=== PATIENT | female | born 2000 | race Caucasian/White ===

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

== ENCOUNTER 2022-08-08 07:47 | Emergency (ER) | payer MEDICAID, SELFPAY ==
[2022-08-08 08:00] VITALS: BMI 22.8
[2022-08-08 08:05] VITALS: BP 132/88; PULSE 105; RESP 18; TEMP 36.7; O2SAT 97
--- NOTE | 2022-08-08 08:30 | XRR_ITS ---
PROCEDURE INFORMATION: Exam: XR Chest Exam date and time: 08/08/2022 9:00 AM Age: 21 years old Clinical indication: Pain; Shortness of breath; Angina pectoris; Additional info: Short of breath, chest pain TECHNIQUE: Imaging protocol: Radiologic exam of the chest. Views: 1 view. COMPARISON: CR (CHEST, ) 09/25/2021 8:53 PM FINDINGS: Lungs: No focal airspace disease. Pleural spaces: Unremarkable. No pleural effusion. No pneumothorax. Heart/Mediastinum: Cardiomediastinal silhouette is within normal limits. Bones/joints: Unremarkable. XR/XR chest 1V portable [id number] IMPRESSION: No acute cardiopulmonary abnormality.
--- NOTE | 2022-08-08 08:44 | ECG_ITS ---
[facility] Test Date: 2022-08-08 Pat Name: Tylor Roland Department: Room: Gender: Female Senior Financial Accountant: : 2000 Requested By: Aubrie May Order Number: [id number] Reed MD: Cecily Guzman M.D. Measurements Intervals [place] Rate: 98 P: 30 ID: [id number] QRS: 59 QRSD: 68 T: 41 QT: 332 QTc: 425 Interpretive Statements SINUS RHYTHM No previous ECG available for comparison Electronically Signed On 08-08-2022 22:04:00 CDT by Cecily Guzman M.D. [id number]
[2022-08-08] MEDS: ondansetron 2 mg/ML SDV 2 mL 4 MG IVP (08:45)
[2022-08-08 08:48] VITALS: RESP 16; O2SAT 97
[2022-08-08] MEDS: morphine 4 mg/mL SDV 1 mL IVP (08:48)
[2022-08-08 08:50] VITALS: PULSE 98; RESP 16; O2SAT 98
[2022-08-08 09:10] LABS: Basophils % 0.6 %; Eosinophils # 0.2 10^3/uL (0.0-0.8); Eosinophils % 2.2 %; Hematocrit 44.6 % (37.0-47.0); Hemoglobin 15.2 g/dL (11.5-15.3); Lymphocytes # 1.9 10^3/uL (1.5-6.5); Lymphocytes % 27.3 %; Mean Corpuscular HGB Conc 34.1 g/dL (30.0-36.0); Mean Corpuscular Hemoglobin 30.1 pg (28.0-34.0); Mean Corpuscular Volume 88.3 fl (81-99); Mean Platelet Volume 8.9 fL (7.4-10.4); Monocytes # 0.6 10^3/uL (0.2-0.9); Monocytes % 9.2 %; Neutrophils # 4.13 10^3/uL (1.8-8.0); Neutrophils % 60.3 %; Nucleated Red Blood Cells % 0 %; Platelet Count 386 10^3/cmm (130-400); Red Blood Count 5.05 10^6/uL (4.1-5.3); Red Cell Distribution Width 11.8 % (12.1-15.1); White Blood Count 6.9 10^3/uL (4.5-13.0)
[2022-08-08 09:28] LABS: HCG, Serum Qual Negative (Negative)
[2022-08-08 09:29] LABS: D Dimer 0.63 ug/mIFEU (0-0.59)
[2022-08-08 09:31] VITALS: BP 120/80; PULSE 96; RESP 14; O2SAT 96
[2022-08-08 09:36] LABS: Alanine Aminotransferase 23 U/L (0-33); Albumin Level 4.8 g/dL (3.5-5.2); Alkaline Phosphatase 98 U/L (35-105); Anion Gap 16.5 (5-19); Aspartate Amino Transferase 19 U/L (0-32); Blood Urea Nitrogen 10 mg/dL (6-20); Calcium 10.3 mg/dL (8.5-10.5); Carbon Dioxide 26 mmol/L (22-29); Chloride 104 mmol/L (98-107); Globulin 3.4 g/dL (1.3-4.6); Glomerular Filtration Rate 128.8 mL/min (90-130); Glucose 94 mg/dL (65-115); Osmolality Calculated 293 mOsm/kg (285-295); Potassium 4.5 mmol/L (3.5-5.1); Sodium 142 mmol/L (136-145); Total Bilirubin 0.8 mg/dL (0.15-1.2); Total Protein 8.2 g/dL (6.6-8.7)
--- NOTE | 2022-08-08 09:50 | CTR_ITS ---
PROCEDURE INFORMATION: Exam: CTA Chest With Contrast Exam date and time: 08/08/2022 9:59 AM Age: 21 years old Clinical indication: Pain; Shortness of breath; Chest pressure; Additional info: [place], JAREN TECHNIQUE: Imaging protocol: Computed tomographic angiography of the chest with contrast. 3D rendering (Not supervised by radiologist): MIP and/or 3D reconstructed images were created by the technologist. Radiation optimization: All CT scans at this facility use at least one of these dose optimization techniques: automated exposure control; mA and/or kV adjustment per patient size (includes targeted exams where dose is matched to clinical indication); or iterative reconstruction. Contrast material: OMNI 350; Contrast volume: 61 ml; Contrast route: INTRAVENOUS (IV); COMPARISON: CR (CHEST, ) 08/08/2022 9:00 AM RADIATION DOSE METRICS: Total DLP (mGy-cm): 160.95 FINDINGS: Pulmonary arteries: Normal. No pulmonary emboli. Aorta: Unremarkable. No aortic aneurysm. No aortic dissection. Lungs: Unremarkable. No consolidation. No masses. Pleural spaces: Unremarkable. No pneumothorax. No pleural effusion. Heart: Unremarkable. No cardiomegaly. No pericardial effusion. Lymph nodes: Unremarkable. No enlarged lymph nodes. Bones/joints: Unremarkable. No acute fracture. Soft tissues: Unremarkable. CT/CT angio chest PE protcl [id number] IMPRESSION: No acute findings.
[2022-08-08] MEDS: iohexol 350 mg/mL 100 mL Btl IV (10:04)
[2022-08-08 10:21] VITALS: BP 125/83; PULSE 91; RESP 17; O2SAT 99
--- NOTE | 2022-08-08 10:21 | ED_ITS ---
HPI - SOB/Dyspnea General: Chief Complaint: Shortness of Breath/Dyspnea Stated Complaint: SOB, Chest pressure Time Seen by Provider: 08/08/22 08:21 History of Present Illness: HPI Narrative: This patient is a 21-year-old presenting to the ER with chest pain and shortness of breath that began at about 3:00 this morning. She denies any prior history of chest pain or shortness of breath. She denies any recent history or cough. No fevers. No sore throat. No recent injury. She says that nothing makes the pain better or worse. When specifically asked she does say that taking a deep breath makes the pain worse. The pain is also worse with laying back or sitting forward. She is reclined about 45 degrees and says that is comfortable. She denies other medical history. She seems anxious and is hyperventilating slightly on my evaluation. She is breathing with pursed lips. She is however, able to answer questions and speak in full sentences without difficulty. Associated symptoms: Reports chest pain; Deny abdominal pain, fever(s), nausea, syncope or vomiting Review of Systems Const: Denies: fever(s), chills, fatigue or malaise Eyes: Denies: change in vision ENMT: Denies: odynophagia Card: Reports: chest pain; Denies: swelling of feet/ankles or syncope Resp: Reports: dyspnea and pain on inspiration; Denies: productive cough or non-productive cough GI: Denies: abdominal pain, nausea or vomiting : Denies: flank pain or difficulty voiding Musc: Denies: neck pain or back pain Skin/Breast: Denies: rash Neuro: Denies: headache(s), numbness in extremities or weakness in extremities Agapito/Lymph: Denies: easy bruising or easy bleeding PFS ED PFSH: Social History Smoking and tobacco status: never smoked Female Reproductive History: Date of last menstrual period: 08/02/22 Physical Exam Const: COMMON NORMALS: patient oriented x3, no limitations, healthy appearing and alert; apparent distress (Anxious) GENERAL APPEARANCE: cooperative and comfortable HENMT: HEAD & SCALP: normal to inspection FACE & SINUS: normal facial exam Eye: GENERAL EYE: appearance normal, both eyes and all related structures Neck/C-Spine: COMMON NORMALS: supple, no meningeal signs and no JVD Chest: COMMONS NORMALS: normal inspection of the chest Resp: COMMON NORMALS: normal respiratory effort, No use of accessory muscles and clear to auscultation bilaterally AUSCULTATION: clear to auscultation bilaterally Cardio: COMMON NORMALS: no JVD, regular rate, regular rhythm and No murmurs present (Cardio) RATE: regular rate RHYTHM: regular rhythm GI: COMMON NORMALS: Normal to inspection, nondistended, normoactive bowel sounds present, Soft to palpation and non-tender INSPECTION: Yes normal to inspection AUSCULTATION: Yes normoactive bowel sounds PALPATION: Yes Soft to palpation Back/Pelvis: COMMON NORMALS: thoracic and lumbar spine normal to inspection Extremity: COMMON NORMALS: normal to inspection Neuro: COMMON NORMALS: patient oriented x3, moves all extremities, no focal motor deficits and no sensory deficits noted SENSORIUM/ORIENTATION: Yes alert MENINGEAL SIGNS: Yes no meningeal signs Psych: COMMON NORMALS: mental status grossly normal, cooperative and normal affect Skin: COMMON NORMALS: no rashes or lesions noted and turgor normal GENERAL SKIN EXAM: no rashes or lesions noted and turgor normal Course Vital Signs: Vital signs: Vital Signs Temperature 98.0 F 08/08/22 08:05 Pulse Rate 97 08/08/22 10:55 Respiratory Rate 16 08/08/22 10:55 Blood Pressure 137/89 08/08/22 10:55 Pulse Oximetry 98 08/08/22 10:55 Oxygen Delivery Me thod 08/08/22 10:21 MDM - SOB/Dyspnea Medical Decision Making Patient with chest pain or shortness of breath. She appears anxious on exam. Her chest pain is pleuritic in nature. It is not relieved by sitting forward. Lungs are clear. She does not have risk factors for PE but given her clear lungs and pleuritic pain a D-dimer was ordered. This was positive and thus a CT angio was done. This was also negative. She could have some mild pericarditis although that would typically be improved by leaning forward not worsened. Given her otherwise normal work-up, normal vital signs, normal oxygen saturation, I think she is safe to be discharged for outpatient follow-up. Patient had relief of symptoms with morphine. Lab Data : 08/08/22 08:47 08/08/22 08:47 Labs/Radiology: Radiology Impressions Chest X-Ray 08/08/22 08:30 IMPRESSION: No acute cardiopulmonary abnormality. Chest CTA 08/08/22 09:50 IMPRESSION: No acute findings. Laboratory Results WBC 6.9 10^3/uL (4.5-13.0) 08/08/22 08:47 RBC 5.05 10^6/uL (4.1-5.3) 08/08/22 08:47 Hgb 15.2 g/dL (11.5-15.3) 08/08/22 08:47 Hct 44.6 % (37.0-47.0) 08/08/22 08:47 MCV 88.3 fl (81-99) 08/08/22 08:47 MCH 30.1 pg (28.0-34.0) 08/08/22 08:47 MCHC 34.1 g/dL (30.0-36.0) 08/08/22 08:47 RDW 11.8 % (12.1-15.1) L 08/08/22 08:47 Plt Count 386 10^3/cmm (130-400) 08/08/22 08:47 MPV 8.9 fL (7.4-10.4) 08/08/22 08:47 Neut % (Auto) 60.3 % 08/08/22 08:47 Lymph % (Auto) 27.3 % 08/08/22 08:47 [place] % (Auto) 9.2 % 08/08/22 08:47 Eos % (Auto) 2.2 % 08/08/22 08:47 Baso % (Auto) 0.6 % 08/08/22 08:47 Neut # (Auto) 4.13 10^3/uL (1.8-8.0) 08/08/22 08:47 Lymph # (Auto) 1.9 10^3/uL (1.5-6.5) 08/08/22 08:47 [place] # (Auto) 0.6 10^3/uL (0.2-0.9) 08/08/22 08:47 Eos # (Auto) 0.2 10^3/uL (0.0-0.8) 08/08/22 08:47 Baso # (Auto) 0.0 10^3/uL (0.0-0.1) 08/08/22 08:47 Nucleated RBC % (auto) 0 % 08/08/22 08:47 Nucleated RBCs # 0.0 /100WBC 08/08/22 08:47 D-Dimer 0.63 ug/mIFEU (0-0.59) H 08/08/22 08:47 Sodium 142 mmol/L (136-145) 08/08/22 08:47 Potassium 4.5 mmol/L (3.5-5.1) 08/08/22 08:47 Chloride 104 mmol/L (98-107) 08/08/22 08:47 Carbon Dioxide 26 mmol/L (22-29) 08/08/22 08:47 Anion Gap 16.5 (5-19) 08/08/22 08:47 BUN 10 mg/dL (6-20) 08/08/22 08:47 Creatinine 0.6 mg/dL (0.5-0.9) 08/08/22 08:47 GFR Calculation 128.8 mL/min (90-130) 08/08/22 08:47 Glucose 94 mg/dL (65-115) 08/08/22 08:47 Calculated Osmolality 293 mOsm/kg (285-295) 08/08/22 08:47 Calcium 10.3 mg/dL (8.5-10.5) 08/08/22 08:47 Total Bilirubin 0.8 mg/dL (0.15-1.2) 08/08/22 08:47 AST 19 U/L (0-32) 08/08/22 08:47 ALT 23 U/L (0-33) 08/08/22 08:47 Alkaline Phosphatase 98 U/L (35-105) 08/08/22 08:47 Total Protein 8.2 g/dL (6.6-8.7) 08/08/22 08:47 Albumin 4.8 g/dL (3.5-5.2) 08/08/22 08:47 Globulin 3.4 g/dL (1.3-4.6) 08/08/22 08:47 HCG, Qual Negative (Negative) 08/08/22 08:47 Imaging Data CTA Chest: My impression: No PE Radiologist's impression: No PE EKG Data EKG 1: Interpretation: EKG at 8:44 AM. Sinus rhythm, normal intervals, rate 98. Normal axis. Normal ST segments. Normal QRS complex. Discharge Plan Discharge Patient Disposition: Home Clinical Impression: Shortness of breath, Chest pain, pleuritic Condition: Stable Prescriptions: New naproxen 500 mg tablet 500 mg PO BID PRN (Reason: pain) Qty: 14 0RF omeprazole 40 mg capsule,delayed release(DR/EC) 40 mg PO DAILY Qty: 7 0RF Discontinued hydrocodone-acetaminophen 5-325 mg tablet 1 tab PO Q6H PRN (Reason: pain) Qty: 14 0RF Discharge Orders: Discharge ED (Routine); Ordered 08/08/22 Ordered By: Aubrie Ortiz Discharge Diet: Usual diet Discharge Activity: Resume usual activity Patient Instructions: Opioid Safety, Pain Management Activity Restrictions/Additional Instructions: Take the medications as prescribed for the next week. Return to the ER if new or worse symptoms occur. Follow-up with your primary care provider for further evaluation of your symptoms. Your testing today did not reveal any significant abnormal findings. Coding Level of Care Code ED Inter Com Installer for Froylan Fwd Exam Comprehensive
[2022-08-08 10:55] VITALS: BP 137/89; PULSE 97; RESP 16; O2SAT 98
== END 2022-08-08 10:56 | disposition home or self-care (01) ==
PROVIDERS: Emergency Provider Emergency Medicine
DX: R06.02 Shortness of breath (principal); R07.81 Pleurodynia
CPT/HCPCS: 71045; 71275; 80053; 84703; 85025; 85378; 93005; 96374; 96375; 99285; J2270; J2405; Q9967

== ENCOUNTER 2023-02-15 14:04 | Emergency (ER) | payer MEDICAID, SELFPAY ==
[2023-02-15 14:11] VITALS: PULSE 104; RESP 16; TEMP 36.8; O2SAT 99; BMI 21.8
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
== END 2023-02-15 15:50 | disposition home or self-care (01) ==
PROVIDERS: Emergency Provider Physician Assistant; PCP Nurse Practitioner Family
DX: S83.92XA Sprain of unspecified site of left knee, initial encounter (principal); S97.82XA Crushing injury of left foot, initial encounter; V09.9XXA Pedestrian injured in unspecified transport accident, initial encounter
CPT/HCPCS: 73562; 73590; 73610; 73630; 99284

== ENCOUNTER 2023-08-12 13:00 | Emergency (ER) | payer MEDICAID, SELFPAY ==
[2023-08-12] VITALS (20 sets, daily range): BP systolic 110–127; BP diastolic 66–86; PULSE 75–84; RESP 18; TEMP 36.7; O2SAT 98–100; BMI 25.6
--- NOTE | 2023-08-12 13:47 | W.ED.FEMALGU ---
Documented by User: Salome Mccoy PA-C 08/12/23 15:37 HPI - Female Genitourinary General: Chief complaint: Urogenital-Female Stated complaint: cant pee Time Seen by Provider: 08/12/23 13:30 Source: patient Mode of arrival: ambulatory Limitations: no limitations History of Present Illness: 22-year-old female presents to the ER today with pain with urination. Patient reports this is a recurrent issue for her. 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 Patient reports since then she has had frequent UTIs. Her last UTI was about 30 days ago and she was treated and improved from that. Patient reports she does have intercourse and the UTIs have worsened since she started doing that. She does urinate every time after intercourse. She is not on any type of prophylactic antibiotic for postcoital infections. Patient denies any fever or chills. Denies any nausea or vomiting. Patient reports urgency and frequency with lots of hesitancy and trouble urinating. [facility] ED PFSH: Social History Smoking and tobacco/nicotine status: never used tobacco/nicotine Physical Exam Const: COMMON NORMALS: no acute distress, average body habitus, no limitations, healthy appearing, alert and well nourished Resp: COMMON NORMALS: normal respiratory effort EFFORT & INSPECTION: Yes able to speak in complete sentences Cardio: COMMON NORMALS: regular rate and regular rhythm RATE: regular rate RHYTHM: regular rhythm GI: COMMON NORMALS: Normal to inspection, nondistended, normoactive bowel sounds present, Soft to palpation and non-tender PALPATION: Yes Soft to palpation : COMMON NORMALS: Yes no CVA tenderness BLADDER/KIDNEY EXAM: Yes no CVA tenderness and Yes other (no suprapubic tenderness, no distension) Back/Pelvis: COMMON NORMALS: no CVA tenderness Extremity: COMMON NORMALS: normal to inspection, full ROM and no pedal edema Neuro: SENSORIUM/ORIENTATION: Yes alert Psych: COMMON NORMALS: mental status grossly normal, Normal thought process present and cooperative THOUGHT PROCESS: Normal thought process present Skin: COMMON NORMALS: no rashes or lesions noted and no wounds GENERAL SKIN EXAM: no rashes or lesions noted Course ED course: Patient presents to the ER with a history of recurrent UTIs with urinary symptoms. Patient has hesitancy and dysuria today. No fevers. No nausea or vomiting. We will get a UA at this time and treat based on results. Vital Signs: Vital signs: Vital Signs Temperature 98.0 F 08/12/23 13:08 Pulse Rate 75 08/12/23 15:44 Respiratory Rate 18 08/12/23 13:08 Blood Pressure 110/66 08/12/23 15:44 Pulse Oximetry 98 08/12/23 15:44 Oxygen Delivery Me thod Room Air 08/12/23 13:08 MDM - Female Medical Decision Making UA shows blood and leukocytes. Patient in no acute distress in the ER. We will go ahead and treat with Macrobid at this time. Recommended patient push fluids. Always urinate right after intercourse. Discussed with PCP possibly taking prophylactic antibiotics with intercourse given frequent infections. Follow-up with PCP in 7 to 10 days. Return to the ER with new or worsening symptoms. Patient verbalized understanding and was in agreement with the treatment plan. Lab Data Laboratory Results Urine Color Yellow (Yellow) 08/12/23 15:03 Urine Appearance Cloudy (CLEAR) A 08/12/23 15:03 Urine pH 5 (5-7) 08/12/23 15:03 Ur Specific [place] 1.030 (1.005-1.030) 08/12/23 15:03 Urine Protein Neg (Negative) 08/12/23 15:03 Urine Glucose (UA) Norm (Normal) 08/12/23 15:03 Urine Ketones 1+ (Negative) H 08/12/23 15:03 Urine Blood 3+ (Negative) H 08/12/23 15:03 Urine Nitrate Negative (Negative) 08/12/23 15:03 Urine Bilirubin 1+ (Negative) H 08/12/23 15:03 Urine Urobilinogen Norm mg/dL (Negative) 08/12/23 15:03 Ur Leukocyte Esterase Trace (Negative) H 08/12/23 15:03 Urine RBC 0-4 /hpf (0-2) H 08/12/23 15:03 Urine WBC 5-10 /hpf (0-5) H 08/12/23 15:03 Ur Squamous Epith Cells 25-40 /hpf (0-5) H 08/12/23 15:03 Amorphous Sediment Not Reportable 08/12/23 15:03 Urine Bacteria 1+ /hpf (NONE) H 08/12/23 15:03 Urine Mucus 2+ /hpf 08/12/23 15:03 No radiology studies performed this visit Critical Care Time Critical Care Time: Critical Care Time: No Discharge Plan Discharge Patient Disposition: Home Clinical Impression: Urinary tract infection Condition: Stable Prescriptions: New Macrobid 100 mg capsule 100 mg PO BID 5 Days Qty: 10 0RF Rx Instructions: must administer with a meal/food No Action Celexa 10 mg Tablet 10 mg PO QAM Xulane 150-35 mcg/24 hr Patch Weekly 1 patch TRANSDERMAL Q7D Rx Instructions: apply once weekly for 3 weeks of a 4-week cycle Focalin XR 15 mg Capsule,Er Biphasic 50-50 15 mg PO QAM Discharge Orders: Discharge ED (Routine); Ordered 08/12/23 Ordered By: Salome Mccoy Referrals: Janiya Mulligan NP [Primary Care Provider] - Discharge Diet: Usual diet Discharge Activity: Resume usual activity Patient Instructions: Opioid Safety, Pain Management Activity Restrictions/Additional Instructions: Take Macrobid as prescribed. Push fluids. Urinate after intercourse. Follow-up with PCP in 7 to 10 days. Stand Alone Forms: Work/School Release Coding Level of Care Code ED [employer] for [employer] Documented by User: Wong Arroyo DO 08/16/23 10:36 HPI - Female Genitourinary General: Chief complaint: Urogenital-Female Stated complaint: cant pee Time Seen by Provider: 08/12/23 13:30 PFSH ED PFSH: Social History Smoking and tobacco/nicotine status: never used tobacco/nicotine Course Vital Signs: Vital signs: Vital Signs Temperature 98.0 F 08/12/23 13:08 Pulse Rate 75 08/12/23 15:44 Respiratory Rate 18 08/12/23 13:08 Blood Pressure 110/66 08/12/23 15:44 Pulse Oximetry 98 08/12/23 15:44 Oxygen Delivery Me thod Room Air 08/12/23 13:08 MDM - Female Medical Decision Making UA shows blood and leukocytes. Patient in no acute distress in the ER. We will go ahead and treat with Macrobid at this time. Recommended patient push fluids. Always urinate right after intercourse. Discussed with PCP possibly taking prophylactic antibiotics with intercourse given frequent infections. Follow-up with PCP in 7 to 10 days. Return to the ER with new or worsening symptoms. Patient verbalized understanding and was in agreement with the treatment plan. Chart reviewed and patient discussed with midlevel. Agree with assessment and plan. Lab Data Laboratory Results Urine Color Yellow (Yellow) 08/12/23 15:03 Urine Appearance Cloudy (CLEAR) A 08/12/23 15:03 Urine pH 5 (5-7) 08/12/23 15:03 Ur Specific [place] 1.030 (1.005-1.030) 08/12/23 15:03 Urine Protein Neg (Negative) 08/12/23 15:03 Urine Glucose (UA) Norm (Normal) 08/12/23 15:03 Urine Ketones 1+ (Negative) H 08/12/23 15:03 Urine Blood 3+ (Negative) H 08/12/23 15:03 Urine Nitrate Negative (Negative) 08/12/23 15:03 Urine Bilirubin 1+ (Negative) H 08/12/23 15:03 Urine Urobilinogen Norm mg/dL (Negative) 08/12/23 15:03 Ur Leukocyte Esterase Trace (Negative) H 08/12/23 15:03 Urine RBC 0-4 /hpf (0-2) H 08/12/23 15:03 Urine WBC 5-10 /hpf (0-5) H 08/12/23 15:03 Ur Squamous Epith Cells 25-40 /hpf (0-5) H 08/12/23 15:03 Amorphous Sediment Not Reportable 08/12/23 15:03 Urine Bacteria 1+ /hpf (NONE) H 08/12/23 15:03 Urine Mucus 2+ /hpf 08/12/23 15:03 Discharge Plan Discharge Patient Disposition: Home Clinical Impression: Urinary tract infection Condition: Stable Prescriptions: New Macrobid 100 mg capsule 100 mg PO BID 5 Days Qty: 10 0RF Rx Instructions: must administer with a meal/food No Action Celexa 10 mg Tablet 10 mg PO QAM Xulane 150-35 mcg/24 hr Patch Weekly 1 patch TRANSDERMAL Q7D Rx Instructions: apply once weekly for 3 weeks of a 4-week cycle Focalin XR 15 mg Capsule,Er Biphasic 50-50 15 mg PO QAM Discharge Orders: Discharge ED (Routine); Ordered 08/12/23 Ordered By: Salome Mccoy Referrals: Janiya Mulligan NP [Primary Care Provider] - Discharge Diet: Usual diet Discharge Activity: Resume usual activity Patient Instructions: Opioid Safety, Pain Management Activity Restrictions/Additional Instructions: Take Macrobid as prescribed. Push fluids. Urinate after intercourse. Follow-up with PCP in 7 to 10 days. Stand Alone Forms: Work/School Release Coding Level of Care Code ED [employer] for Froylan Avalos
[2023-08-12 15:30] LABS: Urine Appearance Cloudy (CLEAR); Urine Color Yellow (Yellow)
[2023-08-12 15:31] LABS: Add Urine Microscopic? YES; Bilirubin Urine 1+ (Negative); Blood Urine 3+ (Negative); Glucose Urine UA Norm (Normal); Ketones Urine 1+ (Negative); Leukocyte Esterase Urine Trace (Negative); Nitrate Urine Negative (Negative); Protein Urine Neg (Negative); Urobilinogen Urine Norm (Negative); pH Urine 5 (5-7)
[2023-08-12 15:32] LABS: Bacteria Urine 1+ /hpf; Mucus Urine 2+ /hpf; RBC Urine 0-4 /hpf (0-2); Squamous Epithelial Cell Urine 25-40 /hpf (0-5)
== END 2023-08-12 15:45 | disposition home or self-care (01) ==
PROVIDERS: Emergency Provider Physician Assistant; PCP Nurse Practitioner Family
DX: N39.0 Urinary tract infection, site not specified (principal)
CPT/HCPCS: 81001; 99283

== ENCOUNTER → 2023-08-28 12:28 | Outpatient (BNVA) | payer MEDICAID, SELFPAY | PROVIDERS: PCP Nurse Practitioner Family; Visit Provider Nurse Practitioner | DX: R07.9 Chest pain, unspecified (principal); R06.00 Dyspnea, unspecified | CPT/HCPCS: 87400; 87426 ==

== ENCOUNTER 2023-09-01 11:18 | Emergency (ER) | payer MEDICAID, SELFPAY ==
--- NOTE | 2023-09-01 11:37 | XR_ITS ---
WS: [id number] Exam: XR chest 1V portable [id number] Date/Time of Exam: 09/01/2023 11:37 AM Reason For Exam: shortness of breath Comparison 08/08/2022. Findings: The lungs are clear and fully expanded. Costophrenic angles are sharp. No infiltrates. Bronchovascula r relief appears normal. Cardiac silhouette is unremarkable. Bony elements are intact. IMPRESSION: Unremarkable chest radiograph.
[2023-09-01 11:38] VITALS: BP 124/75; PULSE 114; RESP 16; TEMP 36.8; O2SAT 93; BMI 19.3
[2023-09-01 12:50] LABS: Basophils # 0.1 10^3/uL (0.0-0.1); Basophils % 0.6 %; Eosinophils # 0.8 10^3/uL (0.0-0.8); Eosinophils % 9.2 %; Hematocrit 46.1 % (36-47); Lymphocytes # 1.8 10^3/uL (1.5-6.5); Lymphocytes % 20.1 %; Mean Corpuscular HGB Conc 33.2 g/dL (30-55); Mean Corpuscular Hemoglobin 29.8 pg (27-33); Mean Corpuscular Volume 89.9 fl (85-98); Mean Platelet Volume 9.2 fL (7.4-10.4); Monocytes % 10.7 %; Neutrophils % 59.2 %; Nucleated Red Blood Cells % 0 %; Platelet Count 283 10^3/cmm (157-399); Red Blood Count 5.13 10^6/uL (3.85-5.65); White Blood Count 8.95 10^3/uL (4.5-13.0)
[2023-09-01 13:07] LABS: Alanine Aminotransferase 28 U/L (0-33); Albumin Level 4.4 g/dL (3.5-5.2); Alkaline Phosphatase 103 U/L (35-105); Aspartate Amino Transferase 22 U/L (0-32); Blood Urea Nitrogen 9 mg/dL (6-20); Calcium 9.8 mg/dL (8.5-10.5); Carbon Dioxide 25 mmol/L (22-29); Chloride 100 mmol/L (98-107); Creatinine Clr Calc Pharmacy 99.7584; Globulin 3.7 g/dL (1.3-4.6); Glomerular Filtration Rate 106.7 mL/min (90-130); Glucose 86 mg/dL (65-115); Osmolality Calculated 284 mOsm/kg (285-295); Sodium 138 mmol/L (136-145); Total Bilirubin 0.3 mg/dL (0.15-1.2); Total Protein 8.1 g/dL (6.6-8.7)
--- NOTE | 2023-09-01 13:20 | W.ED.URI ---
HPI - URI/Sore Throat General: Chief Complaint: Upper Respiratory Infection Stated Complaint: sob Time Seen by Provider: 09/01/23 13:19 History of Present Illness: Patient is in today for upper respiratory infection. She reports that she was seen in urgent care on Tuesday when her symptoms started. She states that it started with a fever, cough, shortness of breath, chest pain with deep inspiration. She states that she was given an antibiotic but she is getting no better. She reports that she is actually getting worse. She states that she has not had a fever since Tuesday. She denies any contact with known sick individuals Associated symptoms: Reports chills, chest pain, fever(s), headache(s) and nasal congestion; Deny abdominal pain, nausea or vomiting Review of Systems Const: Reports: fever(s), chills, body aches and fatigue ENMT: Reports: nasal discharge, nasal congestion and post nasal drip Card: Reports: chest pain Resp: Reports: dyspnea, non-productive cough, wheezing and pain on inspiration GI: Denies: abdominal pain, nausea or vomiting : Denies: flank pain, difficulty voiding, dysuria or urinary frequency Neuro: Reports: headache(s); Denies: numbness in extremities, weakness in extremities, sensory changes or lack of coordination PFSH ED PFSH: Social History Smoking and tobacco/nicotine status: never used tobacco/nicotine Physical Exam Const: COMMON NORMALS: no acute distress, patient oriented x3 and alert HENMT: COMMON NORMALS: TM's normal bilaterally NOSE: Nasal discharge present clear TYMPANIC MEMBRANE: TM's normal bilaterally THROAT: uvula midline and postnasal drainage Neck/C-Spine: COMMON NORMALS: no JVD Resp: EFFORT & INSPECTION: Yes symmetric chest movement, Yes labored, Yes audible wheezes and No tracheal deviation AUSCULTATION: wheezes expiratory wheezes, inspiratory wheezes and throughout Cardio: COMMON NORMALS: no JVD, regular rate, regular rhythm, S1 normal heart sound present, S2 normal heart sound present and No murmurs present (Cardio) RATE: regular rate RHYTHM: regular rhythm HEART SOUNDS: S1 normal heart sound present and S2 normal heart sound present Neuro: COMMON NORMALS: patient oriented x3, CN's II-XII intact bilaterally and moves all extremities SENSORIUM/ORIENTATION: Yes alert Course Vital Signs: Vital signs: Vital Signs Temperature 98.2 F 09/01/23 11:38 Pulse Rate 97 09/01/23 14:17 Respiratory Rate 18 09/01/23 14:07 Blood Pressure 124/75 09/01/23 11:38 Pulse Oximetry 96 09/01/23 14:07 Oxygen Delivery Me thod Room Air 09/01/23 14:07 MDM - URI/Sore Throat Medical Decision Making Consider viral upper respiratory infection, pneumonia, COVID-19, influenza Labs essentially unremarkable. Chest x-ray does not show any acute cardiopulmonary changes. Nebulized albuterol treatment?patient reports improved shortness of breath after nebulized treatment. SPO2 is up to 96%. Heart rate is down respiratory rate is 18. Patient is in no acute distress. She is well-appearing. She is talking without any shortness of breath. She reports that she does have asthma. She is a former smoker and has not smoked in 2 weeks. Influenza and COVID-19 were negative. Will send patient home with albuterol inhaler. Instructed her on using this every 4-6 hours as needed for wheezing and shortness of breath. Make sure that she is staying well-hydrated. Continue the antibiotics she has already been prescribed. Follow-up in the ER as needed for any new or worsening symptoms. Patient verbalized understanding of discharge instructions and is agreeable with discharge to home at this time Lab Data 09/01/23 12:25 09/01/23 12:25 Laboratory Results WBC 8.95 10^3/uL (4.5-13.0) 09/01/23 12:25 RBC 5.13 10^6/uL (3.85-5.65) 09/01/23 12:25 Hgb 15.30 g/dL (12.4-14.8) H 09/01/23 12:25 Hct 46.1 % (36-47) 09/01/23 12:25 MCV 89.9 fl (85-98) 09/01/23 12:25 MCH 29.8 pg (27-33) 09/01/23 12:25 MCHC 33.2 g/dL (30-55) 09/01/23 12:25 RDW 12.0 % (12.1-15.1) L 09/01/23 12:25 Plt Count 283 10^3/cmm (157-399) 09/01/23 12:25 MPV 9.2 fL (7.4-10.4) 09/01/23 12:25 Neut % (Auto) 59.2 % 09/01/23 12:25 Lymph % (Auto) 20.1 % 09/01/23 12:25 [place] % (Auto) 10.7 % 09/01/23 12:25 Eos % (Auto) 9.2 % 09/01/23 12:25 Baso % (Auto) 0.6 % 09/01/23 12:25 Neut # (Auto) 5.30 10^3/uL (1.8-8.0) 09/01/23 12:25 Lymph # (Auto) 1.8 10^3/uL (1.5-6.5) 09/01/23 12:25 [place] # (Auto) 1.0 10^3/uL (0.2-0.9) H 09/01/23 12:25 Eos # (Auto) 0.8 10^3/uL (0.0-0.8) 09/01/23 12:25 Baso # (Auto) 0.1 10^3/uL (0.0-0.1) 09/01/23 12:25 Nucleated RBC % (auto) 0 % 09/01/23 12:25 Nucleated RBCs # 0.0 /100WBC 09/01/23 12:25 Sodium 138 mmol/L (136-145) 09/01/23 12:25 Potassium 4.0 mmol/L (3.5-5.1) 09/01/23 12:25 Chloride 100 mmol/L (98-107) 09/01/23 12:25 Carbon Dioxide 25 mmol/L (22-29) 09/01/23 12:25 Anion Gap 17.0 (5-19) 09/01/23 12:25 BUN 9 mg/dL (6-20) 09/01/23 12:25 Creatinine 0.7 mg/dL (0.5-0.9) 09/01/23 12:25 GFR Calculation 106.7 mL/min (90-130) 09/01/23 12:25 Glucose 86 mg/dL (65-115) 09/01/23 12:25 Calculated Osmolality 284 mOsm/kg (285-295) L 09/01/23 12:25 Calcium 9.8 mg/dL (8.5-10.5) 09/01/23 12:25 Total Bilirubin 0.3 mg/dL (0.15-1.2) 09/01/23 12:25 AST 22 U/L (0-32) 09/01/23 12:25 ALT 28 U/L (0-33) 09/01/23 12:25 Alkaline Phosphatase 103 U/L (35-105) 09/01/23 12:25 Total Protein 8.1 g/dL (6.6-8.7) 09/01/23 12:25 Albumin 4.4 g/dL (3.5-5.2) 09/01/23 12:25 Globulin 3.7 g/dL (1.3-4.6) 09/01/23 12:25 Influenza Type A Ag negative (Negative) 09/01/23 13:20 Influenza Type B Ag negative (Negative) 09/01/23 13:20 SARS-CoV-2 Ag (Rapid) negative (Negative) 09/01/23 13:20 All radiology interpretation(s) finalized by discharge ED provider radiology interpretation(s): Chest x-ray negative for acute cardiopulmonary changes Discharge Plan Discharge Patient Disposition: Home Clinical Impression: Upper respiratory infection Condition: Stable Prescriptions: New Ventolin HFA 90 mcg/actuation HFA aerosol inhaler 2 inh inhalation Q6H PRN (Reason: shortness of breath or wheezing) Qty: 6.7 0RF No Action amoxicillin-pot clavulanate 500-125 mg tablet 1 tab PO BID 7 Days Qty: 14 0RF Celexa 10 mg Tablet 10 mg PO QAM Xulane 150-35 mcg/24 hr Patch Weekly 1 patch TRANSDERMAL Q7D Rx Instructions: apply once weekly for 3 weeks of a 4-week cycle Focalin XR 15 mg Capsule,Er Biphasic 50-50 15 mg PO QAM Discharge Orders: Discharge ED (Routine); Ordered 09/01/23 Ordered By: Honey Myers Referrals: Janiya Mulligan NP [Primary Care Provider] - Discharge Diet: Usual diet Discharge Activity: Increase activity as tolerated Patient Instructions: Upper Respiratory Infection - Adult Activity Restrictions/Additional Instructions: Use albuterol inhaler as needed and as directed for wheezing and shortness of breath. Tylenol and Motrin as needed for fever control. Make sure that you are staying well-hydrated. Follow-up with your primary care provider. Return to the ER as needed for any new or worsening symptoms. Stand Alone Forms: Work/School Release Coding Level of Care Code ED [employer] Man for Froylan Avalos
[2023-09-01] MEDS: albuterol 2.5 mg/3 mL Neb INHALATION (14:01)
[2023-09-01 14:07] VITALS: PULSE 92; RESP 18; O2SAT 96
[2023-09-01 14:17] VITALS: PULSE 97
[2023-09-01 14:19] LABS: Influenza A by IFA negative (Negative); Influenza B by IFA negative (Negative)
[2023-09-01 14:20] LABS: SARS Covid-2 Antigen negative (Negative)
[2023-09-01 14:46] VITALS: RESP 16; O2SAT 96
== END 2023-09-01 14:47 | disposition home or self-care (01) ==
PROVIDERS: Emergency Medicine; Emergency Provider Nurse Practitioner Family; PCP Nurse Practitioner Family
DX: J06.9 Acute upper respiratory infection, unspecified (principal); Z11.52 Encounter for screening for COVID-19
CPT/HCPCS: 36415; 71045; 80053; 85025; 87426; 87804; 94640; 99284; J7613

== ENCOUNTER 2025-03-20 21:30 | Outpatient (CLI) | payer MEDICAID, SELFPAY ==
[2025-03-20 21:39] VITALS: BMI 21.5
[2025-03-20 21:45] VITALS: BP 107/56; PULSE 87
[2025-03-20 21:52] VITALS: BP 109/57; PULSE 85
[2025-03-20 22:07] VITALS: BP 103/65; PULSE 90
[2025-03-20 22:10] LABS: Basophils % 0.3 %; Eosinophils # 0.3 10^3/uL (0.0-0.8); Hematocrit 33.2 % (36-47); Lymphocytes # 2.1 10^3/uL (0.8-4.8); Lymphocytes % 18.7 %; Mean Corpuscular HGB Conc 33.4 g/dL (30-55); Mean Corpuscular Hemoglobin 30.3 pg (27-33); Mean Corpuscular Volume 90.7 fl (85-98); Monocytes # 0.9 10^3/uL (0.2-0.9); Monocytes % 7.9 %; Neutrophils # 7.73 10^3/uL (1.8-7.7); Neutrophils % 69.7 %; Nucleated Red Blood Cells % 0 %; Platelet Count 297 10^3/cmm (157-399); Red Blood Count 3.66 10^6/uL (3.85-5.65); Red Cell Distribution Width 12.2 % (12.1-15.1); White Blood Count 11.08 10^3/uL (3.29-11.43)
[2025-03-20 22:11] LABS: Bilirubin Urine Negative (Negative); Blood Urine Negative (Negative); Glucose Urine UA Negative (Normal); Ketones Urine Negative (Negative); Leukocyte Esterase Urine 3+ (Negative); Nitrate Urine Negative (Negative); Protein Urine Trace (Negative); Specific Gravity, Urine 1.018 (1.005-1.030); Urine Appearance Turbid (CLEAR); Urine Color Yellow (Yellow); pH Urine 8.5 (5-7)
[2025-03-20 22:14] LABS: Add Urine Microscopic? YES; Bacteria Urine 2+ /hpf; Hyaline Casts Urine 0-4 /lpf; RBC Urine 0-2 /hpf (0-2); WBC Urine 21-50 /hpf (0-5)
[2025-03-20 22:22] VITALS: BP 103/55; PULSE 86
[2025-03-20 22:27] LABS: Alanine Aminotransferase 7 U/L (0-33); Albumin Level 3.4 g/dL (3.5-5.2); Alkaline Phosphatase 66 U/L (35-105); Aspartate Amino Transferase 8 U/L (0-32); Blood Urea Nitrogen 7 mg/dL (6-20); Calcium 8.5 mg/dL (8.5-10.5); Carbon Dioxide 24 mmol/L (22-29); Chloride 104 mmol/L (98-107); Creatinine Clr Calc Pharmacy 137.5336; Globulin 3.2 g/dL (1.3-4.6); Glomerular Filtration Rate 154.3 mL/min (90-130); Glucose 71 mg/dL (65-115); Osmolality Calculated 282 mOsm/kg (285-295); Sodium 138 mmol/L (136-145); Total Bilirubin 0.2 mg/dL (0.15-1.2); Total Protein 6.6 g/dL (6.6-8.7)
[2025-03-20 22:38] VITALS: BP 86/53; PULSE 76
[2025-03-20 22:52] VITALS: BP 86/54; PULSE 78
[2025-03-20] MEDS: acetaminophen 500 mg Tablet 1000 MG PO (22:59)
== END 2025-03-20 22:59 | disposition home or self-care (01) ==
LOC: OPOB 21:37 → OBGYN 21:38
PROVIDERS: PCP Nurse Practitioner Family; Visit Provider Family Medicine
DX: O26.899 Other specified pregnancy related conditions, unspecified trimester (principal); Z3A.00 Weeks of gestation of pregnancy not specified; R11.2 Nausea with vomiting, unspecified; R55 Syncope and collapse
CPT/HCPCS: 80053; 81001; 85025; J9999